=== PATIENT | male | born 1985 | race Caucasian/White ===

== ENCOUNTER 2017-11-30 07:17 | Emergency (ER) | payer SELFPAY ==
[2017-11-30 07:22] VITALS: TEMP 98.3; BMI 22.1
--- NOTE | 2017-11-30 08:05 | PDOC ---
Attending Attestation - Resident Resident Name: Rashid Oseguera - ED Attending Attestation I have performed the following: I have examined & evaluated the patient, The case was reviewed & discussed with the resident, I agree w/resident's findings & plan, Exceptions are as noted - Physicial Exam PE: 11/30/17 09:05 Patient is awake and alert, hemodynamically stable, GCS-15; nc, atr cta, no chest wall tpp rrr dp: + 2 b/l LUE: No obvious deformity; + mild soft tissue swelling along the lateral aspect of the left elbow joint, with point tenderness at the radial head, with pain on pronation/supination of the forearm; neurovascularly intact distally; - Medical Decision Making 11/30/17 09:07 Patient is well-appearing 32-year-old male who presents with traumatic left upper extremity pain and tenderness. Elbow x-ray reveals nondisplaced fracture of the left radial head. I suspect the disruption of the distal radial-ulnar membrane. Will immobilize. Will discharge with orthopedic follow-up. <Enio Platt - Last Filed: 11/30/17 09:05> - HPI HPI: 11/30/17 11:08 The patient is a 32 year old male, with no significant past medical history, who presents to the emergency room complaining of left elbow pain for approx. one day s/p fall. The patient reports he slipped on ice and fell backwards onto his left arm. He denies head, neck or back pain. Patient denies numbness, tingling or loss of sensation. Documentation prepared by Moisés Toro, acting as medical office representative for Enio Platt MD. <Moisés Toro - Last Filed: 11/30/17 12:57>
[2017-11-30] MEDS ORDERED: IBUPROFEN 600 MG TABLET (FP) PO ONE ×2 (08:28→08:29)
--- NOTE | 2017-11-30 08:30 | PDOC ---
History of Present Illness - General Chief Complaint: Injury Stated Complaint: FALL Time Seen by Provider: 11/30/17 07:43 - History of Present Illness Initial Comments: 11/30/17 12:23 The patient is a 32 year old right handed male with no significant PMH who presents for evaluation of left elbow pain following a fall. The patient reports slipping on ice 1 day ago and falling backwards onto his left arm. He reports severe pain with supination of his left arm and reduced range of motion of his left elbow and wrist secondary to the pain. He denies any head trauma or other injuries. He denies any headache, SOB, chest pain, abdominal pain, numbness, tingling or weakness. Past History - Past Medical History Allergies/Adverse Reactions: Allergies Allergy/AdvReac Type Severity Reaction Status Date / Time No Known Allergies Allergy Verified 11/30/17 07:22 Home Medications: Ambulatory Orders Tramadol HCl 50 mg PO Q6H PRN #12 tablet MDD 4 tabs 11/30/17 COPD: No - Suicide/Smoking/Psychosocial Hx Smoking History: Current every day smoker Number of Cigarettes Smoked Daily: 10 Information on smoking cessation initiated: Yes 'Breaking Loose' booklet given: 11/30/17 Hx Alcohol Use: No Drug/Substance Use Hx: No Substance Use Type: None Review of Systems - Review of Systems Comments:: 11/30/17 12:26 Constitutional: No fevers, chills, fatigue, malaise HEENT: No Rhinorrhea, nasal congestion, visual changes Cardiovascular: No chest pain, syncope, palpitations, lightheadedness Respiratory: No Cough, SOB, Hemoptysis, Gastrointestinal: No Abdominal pain, Nausea, Vomiting, Constipation, Diarrhea, Melena Genitourinary: No Dysuria, Frequency, Urgency, Hesitancy, Hematuria, Flank pain Musculoskeletal: Left elbow, forearm pain. No Myalgia, arthralgia Skin: No rashes, bruising, pallor Neurologic: No Headache, Dizziness, Numbness, Weakness, or Tingling Psychiatric: No Hallucinations. No SI or HI *Physical Exam - Vital Signs Last Vital Signs Temp Pulse Resp BP Pulse Ox 98.3 F 95 H 20 127/58 100 11/30/17 07:19 11/30/17 07:19 11/30/17 07:19 11/30/17 07:19 11/30/17 07:19 - Physical Exam Comments: 11/30/17 12:29 General Appearance: Nourished. No Apparent Distress HEENT: EOMI, FABRICE. No Pharyngeal Erythema, Tonsillar Exudate, Tonsillar Erythema Neck: No Cervical Lymphadenopathy Respiratory/Chest: Lungs Clear, Normal Breath Sounds. No Crackles, Rales, Rhonchi, Wheezing Cardiovascular: Regular Rhythm, Regular Rate. No Murmur, Gallops, Rubs Gastrointestinal/Abdominal: Normal Bowel Sounds, Soft. No Guarding, Rebound, Tenderness Musculoskeletal: No CVA Tenderness Extremity: Tenderness to palpation of the left elbow. Inability to supinate the left forearm secondary to pain. No snuff box tenderness noted on exam. 2+ radial pulses bilaterally. Sensation to light touch and temperature intact bilaterally. 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 ED Treatment Course - RADIOLOGY Radiology Studies Ordered: Category Date Time Status ELBOW-LEFT [RAD] Stat Radiology 11/30/17 07:50 Completed FOREARM- LEFT [RAD] Stat Radiology 11/30/17 07:50 Completed WRIST-LEFT [RAD] Stat Radiology 11/30/17 07:50 Completed Medical Decision Making - Medical Decision Making 11/30/17 12:30 The patient is a 32 year old right handed male with no significant PMH who presents for evaluation of left elbow pain following a fall. Differential includes but is not limited to: contusion, fracture, ligamentous injury. Given his limited range of motion with supination, we are concerned for an deysi- kvng fracture. We will obtain plain films to evaluate further and treat the patient's pain with ibuprofen. We will continue to monitor and reassess. 11/30/17 12:34 Plain films demonstrate a fracture of the radial head as read by the radiologist. Given his radius fracture and inability to supinate, it is possible that the patient has an deysi-kvng fracture. We have placed the patient in an posterior splint and a sling. We are comfortable discharging the patient with orthopedics follow up. We discussed the results and the plan with the patient who voiced understanding and is agreeable with the plan. *DC/Admit/Observation/Transfer Diagnosis at time of Disposition: [place]-Kvng fracture of left radius Qualifiers: Encounter type: initial encounter Fracture type: closed Qualified Code(s): S52.122A - Displaced fracture of head of left radius, initial encounter for closed fracture - Discharge Dispostion Disposition: HOME Condition at time of disposition: Good Admit: No - Prescriptions Prescriptions: Tramadol HCl 50 mg PO Q6H PRN #12 tablet MDD 4 tabs PRN Reason: Pain - Referrals Referrals: Humberto Ellsworth MD [Staff Physician] - - Patient Instructions Printed Discharge Instructions: How to Use a Sling, DI for Elbow Fracture Additional Instructions: Please return to the ER if you experience concerning or worsening symptoms including worsening pain, fevers, chest pain, or difficulty breathing. You were seen in the ER for left elbow pain. Your x-rays showed a fracture of your radius in your elbow. We have placed you in a splint and you should follow up with our orthopedic surgeon. Please call to schedule a follow up appointment within 1-4 days to discuss further management of your injury. You may use ibuprofen or tylenol as needed to help manage your pain. We have also sent some pain medication to your pharmacy that you should use every 6 hours as needed for more severe pain. - Post Discharge Activity
[2017-11-30 10:11] VITALS: BP 122/81; PULSE 87
== END 2017-11-30 10:11 | disposition home or self-care (01) ==
LOC: JER 07:17
DX: S52.122A Displaced fracture of head of left radius, initial encounter for closed fracture (principal); F17.210 Nicotine dependence, cigarettes, uncomplicated; W00.0XXA Fall on same level due to ice and snow, initial encounter; Y93.89 Activity, other specified; Y92.9 Unspecified place or not applicable
CPT/HCPCS: 73070-TC-LT; 73090-TC-LT; 73110-TC-LT; 99283-25